=== PATIENT | male | born 1955 | race Caucasian/White ===

== ENCOUNTER 2022-06-13 15:18 | Outpatient (CLI) | payer MEDICARE, OTHER, SELFPAY ==
[2022-06-13 12:56] LABS: Albumin* 4.7 g/dL (3.3-5.0); Chloride* 102 mmol/L (96-114); Potassium* 4.7 mmol/L (3.6-5.1); Sodium* 139 mmol/L (135-149)
[2022-06-13 12:58] LABS: Cholesterol* 177 mg/dL (90-199); Creatinine* 1.1 mg/dL (0.5-1.5); Estimated Glomerular Filt Rate 74 ml/min
[2022-06-13 12:59] LABS: Alanine Aminotransferase* 42 U/L (4-50); Alkaline Phosphatase* 109 U/L (40-150); Aspartate Amino Transferase* 26 U/L (12-35); Bilirubin Total* 0.5 mg/dL (0.1-1.5); Blood Urea Nitrogen* 19 mg/dL (7-30); Carbon Dioxide* 29 mmol/L (20-32); Glucose* 109 mg/dL (60-115); Total Protein* 7.4 g/dL (6.0-8.3); Triglycerides* 126 mg/dL (40-149)
[2022-06-13 13:00] LABS: Calcium* 9.8 mg/dL (8.4-10.6); HDL Cholesterol* 39 mg/dL (>=40); LDL Cholesterol Calculated 113 mg/dL (<100)
[2022-06-13 13:32] LABS: PSA Screen* 0.71 ng/mL (0.10-4.00)
== END 2022-06-13 15:19 | disposition home or self-care (01) ==
PROVIDERS: PCP Family Medicine; Visit Provider Family Medicine
DX: Z00.00 Encounter for general adult medical examination without abnormal findings (principal); E78.5 Hyperlipidemia, unspecified; Z12.5 Encounter for screening for malignant neoplasm of prostate
CPT/HCPCS: 80053; 80061; 84153

== ENCOUNTER 2023-06-22 10:58 | Outpatient (CLI) | payer MEDICARE, OTHER, SELFPAY | END 2023-06-22 10:59 | disposition home or self-care (01) | PROVIDERS: PCP Family Medicine; Visit Provider Family Medicine | DX: Z00.00 Encounter for general adult medical examination without abnormal findings (principal); E55.9 Vitamin D deficiency, unspecified; E78.5 Hyperlipidemia, unspecified; R68.82 Decreased libido; Z12.5 Encounter for screening for malignant neoplasm of prostate | CPT/HCPCS: 80053; 80061; 82306; 84153 ==

== ENCOUNTER 2024-09-29 08:52 | Outpatient (CLI) | payer MEDICARE, OTHER, SELFPAY | END 2024-09-29 08:53 | disposition home or self-care (01) | PROVIDERS: PCP Family Medicine; Visit Provider Family Medicine | DX: E55.9 Vitamin D deficiency, unspecified (principal); E78.5 Hyperlipidemia, unspecified; Z12.5 Encounter for screening for malignant neoplasm of prostate | CPT/HCPCS: 80053; 80061; G0103 ==